=== PATIENT | female | born 1965 | race Caucasian/White ===

== ENCOUNTER 2019-07-19 05:51 | Day surgery (SDC) | payer OTHER ==
[2019-07-19] MEDS ORDERED: CEFAZOLIN 2 GM/50 ML (PMX) 50 ML IVPB (07:00)
[2019-07-19] MEDS ORDERED: SEVOFLURANE 15 MIN (07:30)
[2019-07-19] MEDS ORDERED: MIDAZOLAM 1 MG/ML 2 ML INJ (07:50)
[2019-07-19] MEDS: POLYMYXIN/BACITRACIN 1L IRRIG (08:26)
[2019-07-19] MEDS: BUPIVACAINE 0.5% (SDV) 30 ML INJ (09:21)
[2019-07-19] MEDS ORDERED: ONDANSETRON 4 MG INJ (10:07)
[2019-07-19] MEDS ORDERED: CEFAZOLIN 1 GM INJ (10:07)
[2019-07-19] MEDS ORDERED: LIDOCAINE 2% (SDV) 5 ML INJ (10:07)
[2019-07-19] MEDS ORDERED: PROPOFOL 20 ML (10:07)
[2019-07-19] MEDS ORDERED: HYDROmorphONE 1 MG/5 ML IV SYRINGE IV ×2 (10:30)
[2019-07-19] MEDS ORDERED: DIPHENHYDRAMINE 50 MG INJ IV (10:30)
[2019-07-19] MEDS ORDERED: METOCLOPRAMIDE 10 MG INJ IV (10:30)
[2019-07-19] MEDS ORDERED: ONDANSETRON 4 MG INJ IV (10:30)
[2019-07-19] MEDS ORDERED: LABETALOL HCL 20MG INJ IV (10:30)
[2019-07-19] MEDS ORDERED: MEPERIDINE 25 MG INJ IV (10:30)
[2019-07-19] MEDS ORDERED: FENTAnyl 50 MCG/ML VIAL IV (10:30)
[2019-07-19] MEDS ORDERED: OXYCODONE/ACETAMINOPHEN (5/325) TAB PO (12:00)
[2019-07-19] MEDS: OXYCODONE/ACETAMINOPHEN (5/325) TAB PO (12:08)
== END 2019-07-19 13:30 | disposition home or self-care (01) ==
LOC: SDS 05:51
DX: S86.111A Strain of other muscle(s) and tendon(s) of posterior muscle group at lower leg level, right leg, initial encounter (principal); M21.41 Flat foot [pes planus] (acquired), right foot; X58.XXXA Exposure to other specified factors, initial encounter; E66.01 Morbid (severe) obesity due to excess calories; Z68.41 Body mass index [BMI] 40.0-44.9, adult
CPT/HCPCS: 27658; 73620; 73630; 88304